=== PATIENT | female | born 1950 | race Caucasian/White ===

== ENCOUNTER 2019-08-31 17:49 | Outpatient (CLI) | payer MEDICARE, SELFPAY ==
--- NOTE | ~2019-08-31 | XR_ITS ---
EXAMINATION: XR hand RT min 3V DATE: 08/31/2019 18:26 INDICATION: Crush injury to the right hand with pain at the third and fourth metacarpals. TECHNIQUE: Posteroanterior, oblique and lateral views of the right hand were obtained. COMPARISON: None. FINDINGS: Diffuse osteopenia which decreases sensitivity for nondisplaced fracture. Bone alignment is normal. N o fractures identified. 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 Soft tissues are unremarkable. IMPRESSION: 1. No acute osseous abnormality. 2. Polyarticular osteoarthritis, severe at the first carpal metacarpal joint. 3. Prominent diffuse osteopenia. Reviewed, dictated and finalized at location A.
== END 2019-08-31 17:50 | disposition home or self-care (01) ==
PROVIDERS: PCP Physician Assistant
DX: S67.21XA Crushing injury of right hand, initial encounter (principal); T14.8XXA Other injury of unspecified body region, initial encounter; M19.041 Primary osteoarthritis, right hand; M85.89 Other specified disorders of bone density and structure, multiple sites
CPT/HCPCS: 73130

== ENCOUNTER → 2020-02-16 13:17 | Outpatient (CLI) | payer MEDICARE, SELFPAY ==
--- NOTE | ~2020-02-16 | MR_ITS ---
EXAMINATION: MR lumbar spine wo con EXAM DATE: 02/16/2020 14:08 INDICATION: Low back pain. TECHNIQUE: Multi-sequential, multiplanar MR images of the lumbar spine were obtained without contrast . Sagittal T1, T2, T2 fat saturation images. Axial T2 weighted images. Comparison is made to prior examination from 10/13/2011. FINDINGS: There is 2 mm retrolisthesis L1 on L2. The vertebral bodies are otherwise aligned. Congenit ally narrow L5-S1 disc height. Mild disc disease at all lumbar levels. The conus medullaris terminate s at the T12-L1 level and has normal signal intensity and morphology. There are scattered focal sign al abnormalities consistent with hemangiomata, otherwise without focal suspicious marrow signal abnor malities. Paraspinal soft tissue is unremarkable. Level by level evaluation: T12-L1: Disc does not extend beyond the endplate margin. Facet arthropathy: Mild. Neural foraminal stenosis: No stenosis. Central canal stenosis: No stenosis. L1-L2: There is a mild diffuse disc bulge. Facet arthropathy: Mild. Neural foraminal stenosis: No stenosis. Central canal stenosis: No stenosis. L2-L3: There is a mild diffuse disc bulge. Facet arthropathy: Mild to moderate. Neural foraminal stenosis: No stenosis. Central canal stenosis: No stenosis. L3-L4: There is a mild diffuse disc bulge. Facet arthropathy: Mild to moderate. Neural foraminal stenosis: Mild bilateral. Central canal stenosis: No stenosis. L4-L5: There is a mild diffuse disc bulge. Facet arthropathy: Mild to moderate . Ligamentum flavum enlargement. Neural foraminal stenosis: Mild bilateral. Central canal stenosis: Mild. L5-S1: There is a congenitally narrowed disc space. Facet arthropathy: Mild. Neural foraminal stenosis: No stenosis. Central canal stenosis: No stenosis. Mild interval progression in the disc disease compared to 2011. IMPRESSION: 1. Overall mild lumbar spondylosis. Reviewed, dictated and finalized at location G.
== END ==
PROVIDERS: Visit Provider Specialist
DX: M54.5 Low back pain (principal); M47.816 Spondylosis without myelopathy or radiculopathy, lumbar region
CPT/HCPCS: 72148

== ENCOUNTER → 2020-06-04 18:09 | Outpatient (CLI) | payer MEDICARE, SELFPAY ==
--- NOTE | ~2020-06-04 | XR_ITS ---
XR foot LT min 3V DATE: 06/04/2020 18:46 INDICATION: Fall. Left foot injury, pain TECHNIQUE: 4 views COMPARISON: 08/15/2015 left foot FINDINGS: There is diffuse osteopenia. There is plantar calcaneal enthesopathy. There is osteoarthritis at the first metatarsophalangeal joint. There is a subtle nondisplaced linear fracture of the base of the fifth metatarsal bone. IMPRESSION: Linear nondisplaced fracture of the base of the fifth metatarsal bone Reviewed, dictated and finalized at location A. RETTE INSPECTOR IMPRESSION: Linear nondisplaced fracture of the base of the fifth metatarsal blayne ne
== END ==
PROVIDERS: Visit Provider Specialist
DX: S92.355A Nondisplaced fracture of fifth metatarsal bone, left foot, initial encounter for closed fracture (principal)
CPT/HCPCS: 73630

== ENCOUNTER 2021-02-26 15:41 | Outpatient (CLI) | payer MEDICARE, SELFPAY ==
--- NOTE | ~2021-02-26 | MR_ITS ---
EXAMINATION: MR lumbar spine wo con DATE: 02/26/2021 16:36 INDICATION: Low back pain. TECHNIQUE: Magnetic resonance imaging (MRI) of the lumbar spine was performed without intravenous con trast. Sequences included sagittal T2-weighted FSE, sagittal T2-weighted FS FSE, sagittal T1-weighted FSE, and axial T2-weighted FSE. COMPARISON: Lumbar spine MRI 02/16/2020 FINDINGS: There is 4 degrees dextrocurvature of lumbar spine. Vertebral body heights are normal. Ther e is mildly decreased disc height at L1-L2 and severely decreased disc height at L5-S1. The distal sp inal cord signal intensity is normal. The conus medullaris is at T12-L1. The following disc levels ar e specifically discussed: L1-L2: The disc is bulging. There is mild right facet joint osteoarthritis. There is no neural forami nal stenosis. There is mild central canal stenosis. L2-L3: There is a right foraminal protrusion. There is moderate bilateral facet joint osteoarthritis. There is mild bilateral neural foraminal stenosis. There is no central canal stenosis. L3-L4: The disc is bulging. There is severe bilateral facet joint osteoarthritis. There is mild bilat eral neural foraminal stenosis. There is no central canal stenosis. L4-L5: The disc is bulging. There is severe bilateral facet joint osteoarthritis. There is mild bilat eral neural foraminal stenosis. There is mild central canal stenosis. L5-S1: The disc is bulging and has an annular fissure. There is moderate right and severe left facet joint osteoarthritis. There is no neural foraminal stenosis. There is mild central canal stenosis wit h posterior decompression. IMPRESSION: 1. Moderate lumbar spondylosis, stable from 02/16/2020. Reviewed, dictated and finalized at location A.
== END 2021-02-26 15:42 | disposition home or self-care (01) ==
LOC: ANHIMG 15:46
PROVIDERS: PCP Family Medicine Adolescent Medicine; Visit Provider Specialist
DX: M47.817 Spondylosis without myelopathy or radiculopathy, lumbosacral region (principal); M48.07 Spinal stenosis, lumbosacral region
CPT/HCPCS: 72148

== ENCOUNTER 2021-08-29 12:03 | Observation (INO) | payer MEDICARE, SELFPAY ==
[2021-08-29] VITALS (13 sets, daily range): BP systolic 144–173; BP diastolic 69–89; PULSE 53–72; RESP 12–20; TEMP 36.2–36.6; O2SAT 97–100; BMI 23.2
--- NOTE | 2021-08-29 | ECHO_ITS ---
Patient Info Name: Jacinta Ybarra Age: 71 years : 1950 Gender: Female Ht: 63 in Wt: 140 lbs BSA: 1.69 m2 HR: 55 bpm BP: 161 / 79 mmHg Heart Rhythm: Bradycardia Technical Quality: Good Exam Date: 08/29/2021 3:45 PM Exam Location: [facility] Exam Room: Formerly named [facility] Patient Status: Inpatient Admit Date: 08/29/2021 Staff Ordering Physician: Prieto Dan MD Supervisor Salvage: Melody Velasquez RDCS Attending Provider: Abelino Zapata MD Referring Physician: Sy HASTINGS; Exam Type: CA echo doppler color flow Study Info Indications - chest Complete two-dimensional, color flow and Doppler transthoracic echocardiogram is performed. Summary 1. Complete two-dimensional, color flow and Doppler transthoracic echocardiogram is performed. 2. Left ventricular chamber dimension is normal. 3. Left ventricular systolic function is normal, estimated at 65-70%. 4. There is mildly increased left ventricular wall thickness. 5. The left ventricular diastolic function is grade I diastolic dysfunction. 6. There is no aortic valve stenosis. 7. There is trace mitral valve regurgitation. 8. There is trace tricuspid valve regurgitation. 9. No pulmonary hypertension, estimated pulmonary arterial systolic pressure is 31 mmHg. Left Ventricle Left ventricular chamber dimension is normal. Left ventricular systolic function is normal, estimated at 65-70%. There is mildly increased left ventricular wall thickness. The left ventricular diastolic function is grade I diastolic dysfunction. Right Ventricle Right ventricular chamber dimension is normal. Right ventricular systolic function is normal. Left Atria Left atrial chamber dimension is mildly enlarged. Right Atria Right atrial chamber dimension is mildly enlarged. Aortic Valve The aortic valve is probable trileaflet. There is mild aortic valve sclerosis. There is no aortic valve stenosis. There is mild aortic valve regurgitation. Pulmonic Valve The pulmonic valve is not well visualized. There is trace pulmonic regurgitation. Mitral Valve The mitral valve has thickened leaflets. There is trace mitral valve regurgitation. The mitral valve annulus is moderately calcified. Tricuspid Valve The tricuspid valve leaflets are normal. There is trace tricuspid valve regurgitation. No pulmonary hypertension, estimated pulmonary arterial systolic pressure is 31 mmHg. Pericardium/Pleural The pericardium appears epicardial fat pad. There is trivial pericardial effusion. Inferior Vena Cava Normal inferior vena cava with >50% collapse upon inspiration consistent with normal right atrial pressure, 5 mmHg. Aorta The aortic root size at the sinus of Valsalva is normal. There is mild aortic atherosclerosis. Left Ventricular Outflow Tract Name Value Normal LVOT 2D LVOT Diameter 2.0 cm LVOT Doppler LVOT Peak Gradient 3 mmHg LVOT Mean Gradient 2 mmHg LVOT VTI 21 cm LVOT VTI/AV VTI Ratio 0.9 LVOT Stroke V
--- NOTE | ~2021-08-29 | XR_ITS ---
EXAMINATION: XR chest 2V DATE: 08/29/2021 12:49 INDICATION: Chest pain radiating to the left. TECHNIQUE: Frontal and lateral views of the chest were obtained. COMPARISON: Chest 2 views 09/18/2009 FINDINGS: The chest demonstrates clear lungs without pneumonia, pleural effusion, or pneumothorax. Th e heart size is normal. There are prominent paracardial fat pads. IMPRESSION: 1. No acute cardiopulmonary disease. Reviewed, dictated and finalized at location B.
--- NOTE | 2021-08-29 12:11 | ECG_ITS ---
Measurements Intervals [place] Rate: 54 P: 255 WV: 127 QRS: 9 QRSD: 99 T: 60 QT: 401 QTc: 382 Interpretive Statements SINUS BRADYCARDIA WITH OCCASIONAL APPARENTLY CONDUCTED SUPRAVENTRICULAR PREMATURE COMPLEXES ANTEROSEPTAL MYOCARDIAL INFARCTION , OF INDETERMINATE AGE [40+ ms Q WAVE IN V1-V4] ABNORMAL ECG NO PREVIOUS ECG AVAILABLE FOR COMPARISON Electronically Signed On 08-29-2021 17:04:07 CDT by Abelino Zapata M.D.
[2021-08-29 12:23] LABS: Basophils Percent Auto 0.5 % (0.2-1.2); Eosinophils Absolute Auto 0.1 K/mm3 (0-0.3); Eosinophils Percent Auto 1.1 % (0-4.4); Hematocrit 39.9 % (37.0-47.0); Hemoglobin 12.9 g/dL (12.0-15.0); Immature Granulocyte Absolute 0.01 K/mm3 (0.00-0.031); Immature Granulocyte Percent A 0.2 % (0-0.5); Lymphocytes Percent Auto 19.7 % (18.3-44.2); Mean Corpuscular HGB Conc 32.3 g/dl (32-36); Mean Corpuscular Hemoglobin 31.1 pg (26-34); Mean Corpuscular Volume 96.1 fl (80-100); Mean Platelet Volume 10.4 fl (7.4-10.4); Monocytes Absolute Auto 0.3 K/mm3 (0.1-0.6); Monocytes Percent Auto 4.8 % (2.6-8.5); Neutrophils Absolute Auto 4.1 K/mm3 (1.3-6.7); Neutrophils Percent Auto 73.7 % (45.5-73.1); Platelet Count Result 169 k/mm3 (150-375); Red Blood Count 4.15 M/mm3 (4.2-5.4); Red Cell Distribution Width 13.5 % (11.5-14.5); White Blood Count 5.6 K/mm3 (4.5-10.0)
[2021-08-29 12:34] LABS: Alanine Aminotransferase 13 U/L (4-35); Albumin Level 4.3 g/dL (3.5-5.1); Alkaline Phosphatase 128 U/L (38-126); Anion Gap 5 mmol/L (8-16); Aspartate Amino Transferase 28 U/L (14-36); Bilirubin,Total 1.9 mg/dL (0.2-1.3); Blood Urea Nitrogen 19 mg/dL (7-17); Calcium 10.2 mg/dL (8.4-10.2); Carbon Dioxide 26 mmol/L (22-30); Chloride 108 mmol/L (98-107); Estimated CRCL calculation 35 ml/min; Estimated Glomerular Filt Rate 49; Glucose 111 mg/dL (65-110); Lipase 160 U/L (23-300); Sodium 139 mmol/L (137-145)
[2021-08-29 12:35] LABS: INR 1.1; Prothrombin Time 13.9 Seconds (11.1-14.7)
[2021-08-29 12:36] LABS: Partial Thromboplastin Time 28.2 SECONDS (22.3-36.8)
[2021-08-29 12:49] LABS: Troponin I 0.036 ng/mL (0.000-0.034)
--- NOTE | 2021-08-29 13:14 | ED.CHESTPAIN ---
HPI - Chest Pain General Chief Complaint: Chest Pain Stated Complaint: chest tightness Time Seen by Provider: 08/29/21 12:41 History of Present Illness HPI narrative: Patient is a 71-year-old female who presents ER with chest pain. Began around 12:00 today. Lasted 20 minutes and resolved by taking sublingual nitroglycerin by EMS. Patient has no history of coronary disease. She does have history of atrial fibrillation since she was a child. She reports she has been having intermittent chest pain for last 2 to 3 days. Today it was sharp and across her entire chest going into the back of her neck and shoulders. Is associate with nausea and lightheadedness. No vertiginous dizziness. Related Data Home Medications Medication Instructions Recorded Confirmed No Home Medications 08/29/21 08/29/21 Allergies Allergy/AdvReac Type Severity Reaction Status Date / Time No Known Allergies Allergy Verified 08/29/21 14:52 Review of Systems Review of Systems: All systems reviewed & are unremarkable except as noted in HPI and below Constitutional: Constitutional: Denies chills, Denies fever(s) and Denies weakness ENT: Denies nasal congestion and Denies sore throat Cardiovascular: Cardiovascular: Reports chest pain, Denies rapid heart rate and Reports radiating jaw, neck or arm pain Respiratory: Respiratory: Denies cough, Denies dyspnea and Denies wheezing Gastrointestinal: Gastrointestinal: Denies abdominal pain, Reports nausea and Denies vomiting Neurologic: Reports dizziness, Denies syncope, Denies focal weakness and Denies numbness PMFSH Past Medical History Medical History (Updated 08/29/21 @ 15:40 by Kaleb Agee MD) Acute gastric ulcer with bleeding Chronic a-fib CKD stage 3 due to type 2 diabetes mellitus Diabetes mellitus Malignant neoplasm of colon Microscopic hematuria Type 2 diabetes mellitus with kidney complication, without long-term current use of insulin Urinary incontinence Surgical History Surgical History (Updated 08/29/21 @ 15:39 by Kaleb Agee MD) History of esophagogastroduodenoscopy (EGD) Family History Family History (Updated 08/29/21 @ 15:05 by Lexii Lubin RN) Father Diabetes mellitus Social History Social History Smoking status: Never smoker Alcohol intake: never Substance use: never Spiritual care concerns: No Exam Narrative: GENERAL: Well-appearing, well-nourished, and in no acute distress. HEAD: Normocephalic, atraumatic. ENT: Mucous membranes moist. CHEST: Clear to auscultation. No respiratory distress. HEART: Regular rate and rhythm. Normal peripheral pulses. ABDOMEN: Soft, nontender, nondistended. EXTREMITIES: Normal range of motion. No edema. SKIN: Warm, dry, no rash. NEURO: Alert and oriented x3. PSYCH: Normal mood and affect. Course Reevaluation(s) Reevaluation #1: Discussed with Caitlyn with cardiology. Recommends admission to their service but does not recommend any Lovenox or heparin at this time as patient is pain-free and only has a mild bump in her troponin. They would like to continue trending the troponins before determining whether anticoagulation is required. Date: 08/29/21 Time: 13:15 Vital Signs Vital signs: Vital Signs Pulse Rate 56 L 08/29/21 12:03 Respiratory Rate 12 08/29/21 12:03 Blood Pressure 173/89 H 08/29/21 12:03 Pulse Oximetry 100 08/29/21 12:03 Temperature 97.9 F 08/29/21 14:56 Pulse Rate 54 L 08/29/21 14:56 Respiratory Rate 16 08/29/21 14:56 Blood Pressure 166/80 H 08/29/21 14:56 Pulse Oximetry 100 08/29/21 14:56 MDM - Chest Pain Lab Data Result diagrams: 08/29/21 12:17 08/29/21 12:17 Labs: Lab Results 08/29/21 08/29/21 08/29/21 Range/Units 12:17 12:17 12:17 WBC 5.6 (4.5-10.0) K/mm3 RBC 4.15 L (4.2-5.4) M/mm3 Hgb 12.9 (12.0-15.0) g/dL Hct 39.9 (37.0-47.0)
[2021-08-29] MEDS: ASPIRIN 81 MG CHEWABLE TABLET 324 MG PO (13:27)
--- NOTE | 2021-08-29 14:42 | PM.CNCAR ---
Assessment and Plan Additional Plan 71-year-old woman with chest pain incident that is on the surface atypical and not suggestive of myocardial ischemia. The symptom has been resolved and was self-limited on its own this morning. Her ECG interestingly suggest a possible previous anterior infarction. There are no old ECGs in our hospital's records for comparison. She has 1 troponin level that is just barely out of normal range. She decision has been made to admit her to the hospital for further observation and management. At this time I will simply recommend getting an echocardiogram to see if there are any wall motion abnormalities to suggest a previous anterior infarction. Will follow up with these results tomorrow. Prieto Dan MD [facility] History of Present Illness History of Present Illness Consult date/time: 08/29/21 14:42 Consult reason: chest pain Reason For Visit: NSTEMI Narrative: This is a 71-year-old woman who apparently has a history of paroxysmal atrial fibrillation who came to the emergency room today because of chest pain and in that setting is being seen in consultation at the request of the hospitalist/ED staff. The decision has been made to admit her to the hospital overnight for observation. She is not known to have coronary artery disease. Patient states she has has intermittent episodes of at times sharp central substernal pain that comes and goes in an unpredictable fashion. She had an episode this morning of this that was more severe than anything she has noticed in the past. It occurred at home while she was performing routine household activities, nothing particularly stressful. She came to the emergency room for evaluation. Her electrocardiogram here shows a sinus mechanism with anterior Q-waves but no acute ST segment abnormalities. She also has troponin level that was just barely out of normal range at 0.035. She had this pain this morning for about 20 minutes apparently it subsided spontaneously and she denies any other cardiovascular complaints she does conduct normal daily activities and is able to walk and carry out daily activities without triggering any chest pain in general. She denies any orthopnea PND edema or recent palpitations. Regarding her atrial fibrillation she states that she saw a customer relations advisor many years ago and was told that she had an episode of atrial fibrillation but the burden of AFib was very low and no specific medical therapy of this was recommended. Anticoagulation she can not recall being recommended or discussed. She does not have any history of hypertension diabetes or dyslipidemia she reports a history of depression and has primary care physician at [facility] in [place]. She does not have any previous [facility] admissions. Review of Systems Constitutional: Constitutional: Reports no additional constitutional complaints Eyes: Eyes: Reports no additional eye complaints ENT: Reports system reviewed and no additional complaints, except as documented Cardiovascular: Cardiovascular: Reports as per HPI Respiratory: Respiratory: Reports no additional respiratory complaints Gastrointestinal: Gastrointestinal: Reports no additional gastrointestinal complaints Musculoskeletal: Musculoskeletal: Reports no additional musculoskeletal complaints Integumentary/Breasts: Skin/Breast: Reports system reviewed and no additional complaints, except as docu Neurologic: Reports system reviewed and no additional complaints, except as documented Endocrine: Endocrine: Reports no additional endocrine complaints Hematologic/Lymphatic: Hematologic/Lymphatic: Reports no additional hematologic/lymphatic complaints Allergic/Immunologic: Allergic/Immunologic: Reports no additional allergic/immunologic complaints [facility] Past Medical History Medical History (Updated 06/06/20 @ 15:46 by Liana Eldridge) Acute gastric ulcer with bleeding Chronic a-fib CKD stage 3 due to
--- NOTE | 2021-08-29 14:45 | PC.NURSE ---
This patient, Jacinta Ybarra, was admitted to IMU Room 202-. Patient/family oriented to hospital policies and general routines including ID bracelet, bed and alarms, visiting hours, pain management, procedures, bathroom and other care routines, personal items, smoking policy, room service/diet, and visiting hours. Information on how to activate the Rapid Response Team has been discussed. Patient/Family are encouraged to report perceived risks to care and to ask questions if they do not understand what they are told or what they should do.
[2021-08-29 15:44] LABS: Troponin I 0.177 ng/mL (0.000-0.034)
[2021-08-29 18:57] LABS: Troponin I 0.346 ng/mL (0.000-0.034)
[2021-08-30] VITALS (19 sets, daily range): BP systolic 133–158; BP diastolic 68–88; PULSE 49–63; RESP 12–20; TEMP 36.2–36.8; O2SAT 97–100
[2021-08-30 08:23] LABS: Cholesterol 181 mg/dL (0-200); HDL Direct 62 mg/dL; Triglycerides 90 mg/dL (<150)
[2021-08-30 08:33] LABS: LDL Cholesterol Direct 83 mg/dL
--- NOTE | 2021-08-30 09:14 | PM.PNCARD ---
Progress Note: A&P Additional Plan This is a 71-year-old lady with: Episode of chest pain which on the surface seems atypical of angina after being seen in the emergency room yesterday. She is asymptomatic this morning and feels well. She did have a modest troponin rise and would benefit from coronary angiography in that setting. Fortunately her echocardiogram does not show evidence of previous anterior wall infarction which was my concern after reviewing her ECG. She has a remote history of atrial fibrillation but is currently in sinus rhythm and takes no medication at all upon presentation to the hospital. The process of performing a left heart catheterization/angiogram were discussed with the patient in detail. Along with the risks of vascular trauma, hematoma, contrast reactions including acute renal failure as well as risks of acute GA CVA and . She is going to discuss this decision with her daughter and decide whether to proceed or not. The obviously the alternative is to initiate medical therapy which would include aspirin, beta-little and statin. We will await her decision this morning and either schedule angiography or start the above-described medical therapy and consider discharge for follow-up with her physicians in [place] Prieto Dan MD [facility] Subjective Date/time seen: Date of service: 08/30/21 09:14 Interval history: Follow-up visit in this 71-year-old woman with: Episode of chest pain yesterday prompting emergency room visit and admission to the hospital. She is completely asymptomatic this morning and feels well. Discussion with the patient regarding her echocardiographic findings as well as the modest troponin rise that was seen following admission. The appropriate recommendation was to recommend proceeding with coronary angiography given her symptoms and rise in troponin. She wishes to discuss this decision with her daughter who is a nurse prior to making the decision to have any procedures done. Exam Const: General: comfortable and no acute distress Other: Pleasant lady appearing her stated age comfortable cooperative asymptomatic this morning HENMT: Mouth: Yes moist mucous membranes Eyes: Sclera: sclerae normal Neck: Neck: supple and no JVD Other: Carotid pulses are intact bilaterally there are no bruits evident over the neck Resp: Effort & Inspection: normal respiratory effort Auscultation: clear to auscultation bilaterally Cardio: Rate: regular rate Rhythm: regular rhythm Other: No murmur no gallop no rub GI: GI Palp: Yes Soft to palpation Auscultation: normal bowel sounds Skin: General skin exam: normal color Neuro: Cognition (Neuro): normal cognition Extrem: General: normal to inspection Objective Data Vital Signs Vital Signs: Vital Signs - 24 hr 08/29/21 12:03 08/29/21 12:10 08/29/21 12:36 Temperature Pulse Rate 56 L 56 L Respiratory Rate 12 12 Blood Pressure 173/89 H 149/77 H Pulse Oximetry 100 100 98 08/29/21 13:24 08/29/21 14:40 08/29/21 14:56 Temperature 36.6 C Pulse Rate 56 L 57 L 54 L Respiratory Rate 15 15 16 Blood Pressure 161/79 H 154/80 H 166/80 H Pulse Oximetry 99 99 100 08/29/21 16:00 08/29/21 16:06 08/29/21 18:00 Temperature 36.4 C L Pulse Rate 62 53 L 70 Respiratory Rate 20 Blood Pressure 153/81 H Pulse Oximetry 97 08/29/21 19:31 08/29/21 20:00 08/29/21 22:00 Temperature 36.2 C L Pulse Rate 72 56 L 57 L Respiratory Rate 18 Blood Pressure 144/69 H Pulse Oximetry 100 08/29/21 23:39 08/30/21 00:00 08/30/21 02:13 Temperature 36.5 C Pulse Rate 57 L 57 L 54 L Respiratory Rate 16 Blood Pressure 146/82 H Pulse Oximetry 99 08/30/21 03:33 08/30/21 04:00 08/30/21 05:55 Temperature 36.6 C Pulse Rate 53 L 53 L 54 L Respiratory Rate 16 Blood Pressure 145/88 H Pulse Oximetry 98 08/30/21 07:37 08/30/21 08:00 08/30/21 08:45 Temperature 36.2 C L Pulse Rate 54 L 51 L Respirat
--- NOTE | 2021-08-30 09:49 | PCCPR ---
waiting decision to do cath vs medical management
--- NOTE | 2021-08-30 11:04 | WPDMODSED ---
Moderate Sedation Note-Pt Data Patient Data Diagnosis: chest pain, mild troponin rise Present Complaint: no complaints this morning Procedure to be performed/Plan: left heart catheterization Allergies Allergy/AdvReac Type Severity Reaction Status Date / Time No Known Allergies Allergy Verified 08/29/21 14:52 Home Medications Medication Instructions Recorded Confirmed Type No Home Medications 08/29/21 08/29/21 History Current Medications: Active Medications Acetaminophen (Acetaminophen 325 Mg Tablet) 650 mg PO Q4H PRN PRN Reason: Mild Pain (1-3) or Fever Hydrocodone Bitart/Acetaminophen (Hydrocodone/Acetaminophen (*Crx) 5-325 Mg Tablet) 1 tab PO Q4H PRN PRN Reason: Pain Rated 4-6 Nitroglycerin (Nitroglycerin Sl 0.4 Mg Tablet) 0.4 mg SUBLINGUAL Q5MIN PRN PRN Reason: Chest Pain Perflutren Lipid Microsphere (Perflutren Lipid Microspheres 1.5 Ml Vial Diluted To 10 Ml Total Volume) 0 ml IV PUSH ONCE PRN; Protocol PRN Reason: adequate visualization Sedation/Anesthesia: No previous sedation/anesthesia problems (including family history). [facility] Past Medical History Medical History (Updated 08/29/21 @ 15:40 by Kaleb Agee MD) Acute gastric ulcer with bleeding Chronic a-fib CKD stage 3 due to type 2 diabetes mellitus Diabetes mellitus Malignant neoplasm of colon Microscopic hematuria Type 2 diabetes mellitus with kidney complication, without long-term current use of insulin Urinary incontinence Surgical History Surgical History (Updated 08/29/21 @ 15:39 by Kaleb Agee MD) History of esophagogastroduodenoscopy (EGD) Family History Family History (Updated 08/29/21 @ 15:05 by Lexii Lubin RN) Father Diabetes mellitus Social History Social History Smoking status: Never smoker Alcohol intake: never Substance use: never Spiritual care concerns: No Mod Sed Physical Exam Physical Exam Pre Procedural Exam: Normal: Appearance, Throat, Airway, Lungs, Heart Size, Heart Rate, Heart Rhythm, Neuro Exam and Extremities Hours since solid foods: 12 Hours since liquid intake: 12 Mallampati Classification: class II Internal Medicine - PN: Obj Da Vital Signs Vital Signs: Vital Signs - 24 hr 08/29/21 12:03 08/29/21 12:10 08/29/21 12:36 Temperature Pulse Rate 56 L 56 L Respiratory Rate 12 12 Blood Pressure 173/89 H 149/77 H Pulse Oximetry 100 100 98 08/29/21 13:24 08/29/21 14:40 08/29/21 14:56 Temperature 36.6 C Pulse Rate 56 L 57 L 54 L Respiratory Rate 15 15 16 Blood Pressure 161/79 H 154/80 H 166/80 H Pulse Oximetry 99 99 100 08/29/21 16:00 08/29/21 16:06 08/29/21 18:00 Temperature 36.4 C L Pulse Rate 62 53 L 70 Respiratory Rate 20 Blood Pressure 153/81 H Pulse Oximetry 97 08/29/21 19:31 08/29/21 20:00 08/29/21 22:00 Temperature 36.2 C L Pulse Rate 72 56 L 57 L Respiratory Rate 18 Blood Pressure 144/69 H Pulse Oximetry 100 08/29/21 23:39 08/30/21 00:00 08/30/21 02:13 Temperature 36.5 C Pulse Rate 57 L 57 L 54 L Respiratory Rate 16 Blood Pressure 146/82 H Pulse Oximetry 99 08/30/21 03:33 08/30/21 04:00 08/30/21 05:55 Temperature 36.6 C Pulse Rate 53 L 53 L 54 L Respiratory Rate 16 Blood Pressure 145/88 H Pulse Oximetry 98 08/30/21 07:37 08/30/21 08:00 08/30/21 08:45 Temperature 36.2 C L Pulse Rate 63 51 L Respiratory Rate 14 20 Blood Pressure 151/74 H Pulse Oximetry 98 97 99 08/30/21 10:00 Temperature Pulse Rate 57 L Respiratory Rate Blood Pressure Pulse Oximetry Intake/Output Intake/Output: Intake & Output 08/27/21 08/28/21 08/29/21 08/30/21 23:59 23:59 23:59 23:59 Intake Total 540 Output Total 200 200 Balance 340 -200 Meds/Results Medications: Active Medications Generic Name Dose Route Start Last Admin Trade Name Freq PRN Reason Stop Dose Admin Acetaminophen 650 mg 08/29/21 13:19
--- NOTE | 2021-08-30 11:33 | WPDCARDPROC ---
Cardiac Cath Procedure Note Date of procedure:: 08/30/21 Performing physician:: Prieto Dan MD Indication:: chest pain/troponin elevation Brief clinical history:: this is a 71-year-old woman without previous history of coronary disease who experienced some self-limited chest pain yesterday in came to the emergency room. Following admission her troponin levels were seen to arise modestly raising concern regarding possibility of coronary disease. She has no history of exertional anginal-type symptoms. She reports a remote history of atrial fibrillation is on no medication for that and is currently in sinus rhythm. Procedure Procedure performed:: Left ventriculogram coronary angiogram Angio-Seal to right femoral artery Sedation/Medication given:: fentanyl 50 mg Versed 2 mg case start time 10:17 a.m. case end time 10:40 a.m. Access site:: right femoral artery Estimated blood loss:: 25 cc Procedure note:: patient was brought to the cardiac lab in the postabsorptive state where the right femoral triangle was prepared and draped normal fashion. Anesthesia was provided with 1% lidocaine infiltrated locally. Using the modified Seldinger technique the right femoral artery was punctured and a 5 [place] vascular sheath was placed. After this left heart catheterization carried out. I used a 5 [place] angled pigtail catheter to perform a left ventriculogram in the CARRENO projection and document left-sided hemodynamics and pullback pressures across the aortic valve. The pigtail catheter was then withdrawn and a 5 [place] FL4 catheter was used to engage and inject the left coronary artery in multiple projections and following this the right coronary was engaged and injected using a standard 5 [place] JR4 catheter. This any angiograms were then reviewed and the case was terminated. Angiogram was to the femoral artery through the sheath after which a 6 [place] Angio-Seal device was deployed with a good hemostatic result. 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 Findings:: Hemodynamics: Central aortic pressure is 138 over 58 left ventricle 138/0 end-diastolic pressure of 5 there is no systolic gradient on pullback across the aortic valve. Left ventricle: The left ventricle is of normal size all segments contract normally the global ejection fraction is visually estimated to be 55-60%. The left main coronary artery is nicely patent the left anterior descending is a moderate caliber artery extending down to around the apex. The proximal segment of the LAD is very tortuous despite the tortuosity there are no atherosclerotic lesions. Circumflex is a moderate caliber artery giving rise to the marginal branches and a left PDA appears to be codominant. The circumflex is extraordinarily tortuous as well but angiographically free of atherosclerosis. The right coronary artery is a small caliber vessel is codominant terminating in a RPDA. The right coronary artery is also quite tortuous but no significant lesions are identified. Conclusion:: 1. Codominant coronary circulation with no evidence of coronary artery disease 2. remarkably tortuous coronary arteries 3. normal left ventricular systolic function 4. based on these data the patient's chest pain upon admission appears to be nonischemic Prieto Dan MD [facility]
--- NOTE | 2021-08-30 13:01 | PM.DS ---
DS: Admitting Diagnosis Discharge Date 08/30/2021 Admitting Diagnosis Chest pain DS: Discharge Diagnosis Discharge Diagnosis (1) Chest pain at rest: Code(s): R07.9 - Chest pain, unspecified Status: Acute DS: Summary Hospital Course Reason for hospitalization: Evaluation of chest pain Hospital Course: This is a 71-year-old woman without any prior known history of coronary artery disease. She does report a prior history of atrial fibrillation for which she has not been on any medical treatment for a long time. She is maintaining sinus rhythm. She experienced about 20 minutes of chest pain on the morning of coming to the emergency room yesterday. The pain was self-limited and resolved prior to coming to the hospital. Her electrocardiogram did not show any acute ST segment abnormalities. Troponin levels in the emergency room were barely out of normal range and then diana slightly to 0.3. Because of this catheterization was recommended. The patient was brought to the cardiac catheterization lab and found to have angiographically non diseased coronary arteries. Her left right coronary arteries are markedly tortuous but otherwise angiographically normal. Left ventricular systolic function by LV g and by echo also look normal. Her symptoms are presume to be noncardiac for that reason and she will be discharged this afternoon as long as there is no difficulty with hematoma at the site of her femoral artery puncture. She did have Angio-Seal device deployed femoral puncture site. She has primary care physician established for follow-up at [facility] in [place] follow-up will be with them at this point I do not believe there is any further need for cardiac follow-up. Status at Discharge Functional status at discharge: independent ambulation Overall status at discharge: patient is back to baseline Time Spent with Patient Time attestation: Total time spent providing and/or coordinating discharge services: Time spent: Less than 30 minutes Exam Const: General: comfortable and no acute distress Other: Patient instructed not to lift more than 10 lb for the next 5 days not to perform any vigorous activity for 1 week HENMT: Mouth: Yes moist mucous membranes Eyes: Sclera: sclerae normal Pupils: Equal, round and reactive pupils present Neck: Neck: supple and no JVD Resp: Effort & Inspection: normal respiratory effort Auscultation: clear to auscultation bilaterally Cardio: Rate: regular rate Rhythm: regular rhythm Other: No murmur no gallop GI: GI Palp: Yes Soft to palpation Auscultation: normal bowel sounds Skin: General skin exam: normal color Extrem: General: normal to inspection DS: Data Data Completed and Pending Labs on day of discharge: Labs from last 24 hours 08/29/21 08/29/21 08/29/21 18:19 18:16 15:09 Troponin I 0.346 H* D 0.177 H* D Triglycerides 90 Cholesterol 181 LDL Cholesterol Direct 83 HDL Direct 62 Discharge Plan Discharge Attending physician on discharge: Prieto Dan Discharging Clinician: Prieto Dan Patient Disposition: Home, Self-Care Activity: other - see discharge instructions Diet: regular Patient Instructions: Antibiotic Form Stand Alone Forms: General Discharge Information Follow-up/Referrals: Kodi Gonzalez [Other] Discharge Medications: No Action No Home Medications RF: 0 Date of admission: 08/29/21 13:19 Primary Care Provider: PHYSICIAN NOT ON STAFF,NONSTAFF Admitting Provider: Abelino Zapata Attending physician on admission: Abelino Zapata Condition: Stable
--- NOTE | 2021-08-30 15:30 | PC.NURSE ---
1530-discharge information given and explained to patient. Questions answered.
== END 2021-08-30 17:08 | disposition home or self-care (01) ==
LOC: ANHED 13:40 → ANHIMU 14:20
PROVIDERS: Emergency Medicine; Specialist; Admitting Provider Internal Medicine Cardiovascular Disease; Emergency Provider Emergency Medicine; Visit Provider Internal Medicine Cardiovascular Disease
PROC: 4A023N7 Measurement of Cardiac Sampling and Pressure, Left Heart, Percutaneous Approach (ICD-10-PCS; CPT 93452; principal; 2021-08-30 11:30)
DX: R07.9 Chest pain, unspecified (principal); R77.8 Other specified abnormalities of plasma proteins; E11.22 Type 2 diabetes mellitus with diabetic chronic kidney disease; N18.30 Chronic kidney disease, stage 3 unspecified; I48.20 Chronic atrial fibrillation, unspecified; Z85.038 Personal history of other malignant neoplasm of large intestine
CPT/HCPCS: 36415; 71046; 80053; 80061; 83690; 84484; 85025; 85610; 85730; 93005; 93306; 93458; 99285; A9270; C1760; C1887; C1894; G0269; G0378; J1644; J2250; J3010; J7040

== ENCOUNTER 2022-02-20 12:25 | Emergency (ER) | payer MEDICARE, SELFPAY ==
--- NOTE | 2022-02-20 13:20 | ED.URI ---
HPI - URI/Sore Throat General Chief Complaint: Upper Respiratory Infection Stated Complaint: uri Time Seen by Provider: 02/20/22 14:03 Source: patient and RN notes reviewed Mode of arrival: ambulatory Limitations: no limitations History of Present Illness HPI Narrative: 71-year-old female presents concern for exposure to COVID. Reports 1 week ago she started having a cough, body aches, fever, exhaustion. Reports most symptoms are resolving except her exhaustion. She denies vomiting or diarrhea, shortness of breath. Denies current fever, body aches, chills, sweats. MD elicited complaint: cough Related Data Home Medications Medication Instructions Recorded Confirmed mirtazapine 7.5 mg tablet mg 02/20/22 Allergies Allergy/AdvReac Type Severity Reaction Status Date / Time No Known Allergies Allergy Verified 11/07/21 09:56 Review of Systems Review of Systems: CONSTITUTIONAL: Denies malaise, chills, sweats, or fever. Reports exhaustion EYES: Denies visual changes, redness, or discharge. ENT: Reports rhinorrhea, congestion, sinus pain, otalgia and sore throat. CARDIOVASCULAR: Denies chest pain, palpitations, or edema. RESPIRATORY: Reports improving cough. Denies dyspnea. GASTROINTESTINAL: Denies abdominal pain, nausea, vomiting, diarrhea SKIN: Denies rash or itching. MUSCULOSKELETAL: Denies myalgia. NEUROLOGIC: Denies headache. All systems reviewed & are unremarkable except as noted in HPI and below PMFSH Past Medical History Medical History (Updated 02/20/22 @ 14:08 by Cheryl Bridges NP) Acute gastric ulcer with bleeding Chronic a-fib CKD stage 3 due to type 2 diabetes mellitus Diabetes mellitus Heart attack Malignant neoplasm of colon Microscopic hematuria Type 2 diabetes mellitus with kidney complication, without long-term current use of insulin Urinary incontinence Surgical History Surgical History (Updated 11/07/21 @ 10:30 by Lyubov Martinez MA) H/O: hysterectomy History of esophagogastroduodenoscopy (EGD) Family History Family History Father Diabetes mellitus Social History Social History (Updated 11/07/21 @ 09:57 by Lyubov Martinez MA) Smoking status: Never smoker Alcohol intake: never Substance use: never Gender identity (if verbalized by the patient): Female Sexual Orientation (if Verbalized by the Patient): Straight or Heterosexual Spiritual care concerns: No Comments At time of signature, agree with nursing past medical, surgical, social and family history. There is no relevant family history pertinent to the presenting complaint Exam Narrative: GENERAL: Nontoxic appearing and in no acute distress. HEAD: Normocephalic EYES: PERRLA, conjunctivae clear ENT: Nares clear, clear discharge. Mucous membranes moist. NECK: Supple. No lymphadenopathy CHEST: Clear to auscultation, breath sounds equal. No wheezing, rhonchi, rales, or stridor. No respiratory distress, speaks in full sentences. HEART: Regular rate and rhythm. No murmur heard. SKIN: Warm, dry, no rash. NEURO: Alert and oriented x3. PSYCH: Normal mood and affect Course Course Emergency Course: Patient is aware of diagnosis, understands and agrees to treatment plan. Anticipatory guidance given. Patient agrees to follow-up as directed and is aware of reasons to seek care at the emergency department. Portions of this record may have been created with voice recognition software Level of Care: Express Care Visit Vital Signs Vital signs: Vital Signs Temperature 98.3 F 02/20/22 13:23 Pulse Rate 72 02/20/22 13:23 Respiratory Rate 16 02/20/22 13:23 Blood Pressure 92/60 L 02/20/22 13:23 Pulse Oximetry 97 02/20/22 13:23 Oxygen Delivery Room Air 02/20/22 13:23 Temperature 98.3 F 02/20/22 13:23 Pulse Rate 72 02/20/22 13:23 Respiratory Rate 16 02/20/22 13:23 Blood Pressure 92/60 L 02/20/22 13:23 Pulse Oximetry 97 02/20/22 13:23
[2022-02-20 13:23] VITALS: BP 92/60; PULSE 72; RESP 16; TEMP 36.8; O2SAT 97
== END 2022-02-20 14:15 | disposition home or self-care (01) ==
PROVIDERS: Emergency Provider Nurse Practitioner
DX: U07.1 COVID-19 (principal); E11.22 Type 2 diabetes mellitus with diabetic chronic kidney disease; N18.2 Chronic kidney disease, stage 2 (mild); Z79.4 Long term (current) use of insulin; I48.20 Chronic atrial fibrillation, unspecified; I25.2 Old myocardial infarction
CPT/HCPCS: 87426; 99212; C9803; G0463

== ENCOUNTER 2022-10-03 13:19 | Outpatient (CLI) | payer MEDICARE, SELFPAY ==
--- NOTE | ~2022-10-03 | MR_ITS ---
MRI of the lumbar spine Clinical History: Chronic back pain Technique: Axial T2-weighted images, and sagittal T1-weighted, T2-weighted, and T2 fat-sat images wer e acquired. COMPARISON: 02/26/2021 Findings: There is no fracture or subluxation of the lumbar spine. Vertebral bodies maintain normal h eight and alignment. No suspicious bone marrow signal abnormality seen. At L1-L2, there is no disc bulge or herniation. There is moderate facet arthropathy. No spinal canal stenosis or neural foraminal narrowing. At L2-L3, there is no disc bulge or herniation. There is moderate facet arthropathy. No spinal canal stenosis or neural foraminal narrowing. At L3-L4, there is minimal disc bulge with moderate facet arthropathy. No spinal canal stenosis or de finite neural foraminal narrowing. At L4-L5, there is minimal disc bulge with advanced facet arthropathy. No spinal canal stenosis or ne ural foraminal narrowing. At L5-S1, there is advanced degenerative disc narrowing without significant bulge or herniation. Ther e is moderate facet arthropathy. No spinal canal stenosis or neural foraminal narrowing. Paravertebral soft tissues are unremarkable. Impression: Minimal degenerative changes, as above. Reviewed, dictated and finalized at location M. Impression: Minimal degenerative changes, as above.
== END 2022-10-03 13:20 ==
PROVIDERS: PCP Family Medicine Adolescent Medicine; Visit Provider Specialist
DX: M54.50 Low back pain, unspecified (principal)
CPT/HCPCS: 72148; 73564

== ENCOUNTER 2023-02-16 17:40 | Outpatient (CLI) | payer MEDICARE, SELFPAY ==
--- NOTE | ~2023-02-16 | XR_ITS ---
EXAM: XR wrist RT 2V, XR hand RT 2V DATE: 02/16/2023 18:00 HISTORY: M25.521 - Pain in right elbow . COMPARISON: None available. FINDINGS: Decreased mineralization. No fracture or dislocation. No lytic or blastic lesion. 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 No erosion or periosteal change. Soft t issues within normal limits. IMPRESSION: No acute osseous finding in the right hand or wrist. Reviewed, dictated and finalized at location K. IMPRESSION: No acute osseous finding in the right hand or wrist.
--- NOTE | ~2023-02-16 | XR_ITS ---
EXAM: XR elbow RT 2V, XR forearm RT 2V DATE: 02/16/2023 18:00 HISTORY: Fall 2 days ago: Pain in right elbow, wrist hand . COMPARISON: None available. FINDINGS: Decreased mineralization. Mildly impacted radial head fracture. No lytic or blastic lesion . Joint spaces are maintained. No erosion or periosteal change. Elbow joint effusion Soft tissues wit hin normal limits. IMPRESSION: Mildly impacted radial head fracture. Reviewed, dictated and finalized at location K. IMPRESSION: Mildly impacted radial head fracture.
== END 2023-02-16 17:41 | disposition home or self-care (01) ==
PROVIDERS: PCP Family Medicine Adolescent Medicine; Visit Provider Family Medicine Adolescent Medicine
DX: S52.121A Displaced fracture of head of right radius, initial encounter for closed fracture (principal)
CPT/HCPCS: 73070; 73090; 73100; 73120